=== PATIENT | male | born 1960 | race Caucasian/White ===

== ENCOUNTER 2023-12-13 10:04 | Inpatient (IN) | payer MEDICARE, OTHER ==
[~2023-12-13] VITALS: Ht 177.8 cm; Wt 63.5 kg
[2023-12-13 10:08] VITALS: O2SAT 97
[2023-12-13 10:35] LABS: MEAN CORPUSCULAR HEMOGLOBIN 29 PG (26.0-33.0); MEAN CORPUSCULAR HGB CONC 33 g/dl (31.0-36.0)
[2023-12-13 10:38] LABS: BASOPHILS # (AUTO) 0.2 K/uL (0.0-0.2); BASOPHILS % (AUTO) 1.9 % (0.0-2.0); EOSINOPHILS # (AUTO) 0.1 K/uL (0.0-0.7); EOSINOPHILS % (AUTO) 1.4 % (0.0-6.0); HEMATOCRIT 46 % (39-51); HEMOGLOBIN 15.2 g/dL (13.5-17.5); LYMPHOCYTES # (AUTO) 0.7 K/uL (0.8-4.8); LYMPHOCYTES % (AUTO) 7.3 % (20.0-44.0); MEAN CORPUSCULAR VOLUME 88 fL (80-96); MONOCYTES # (AUTO) 0.4 K/uL (0.1-1.30); MONOCYTES % (AUTO) 3.8 % (2.0-12.0); NEUTROPHILS # (AUTO) 8.8 K/uL (1.8-8.9); NEUTROPHILS % (AUTO) 85.6 % (43.0-81.0); PLATELET COUNT (AUTO) 417 K/uL (150-450); RED BLOOD CELL COUNT(AUTO) 5.23 MIL/uL (4.5-6.0); RED CELL DISTRIBUTION WIDTH 15.8 % (11.5-15.0); WHITE BLOOD COUNT (AUTO) 10.2 K/uL (4.3-11.0)
[2023-12-13 10:40] LABS: CALCIUM, SERUM 9.2 mg/dL (8.5-10.1); CARBON DIOXIDE 26 mmol/L (21-32); CHLORIDE 100 mmol/L (98-107); CREATININE 0.7 mg/dL (0.6-1.3); GLUCOSE 149 mg/dL (74-106); POTASSIUM 3.8 mmol/L (3.5-5.1); SODIUM SERUM 135 mmol/L (136-145); UREA NITROGEN, BLOOD 21 mg/dL (7-18)
[2023-12-13] MEDS: IV NS 0.9% 500 ML BAG IV ONE (10:40)
[2023-12-13 10:44] LABS: CHOLESTEROL 350 mg/dL (<200); HDL CHOLESTEROL 62 mg/dL (40-60); LDL 246 mg/dL (0-99); TRIGLYCERIDES 173 mg/dL (30-150)
[2023-12-13 10:44] LABS: INR 1.1 (0.91-1.10); PARTIAL THROMBOPLASTIN TIME 25.9 SEC (24.3-34.3); PROTHROMBIN TIME 11.6 SECS (9.2-11.1)
[2023-12-13 10:48] LABS: LACTIC ACID 1.5 mmol/L (0.4-2.0)
[2023-12-13 10:54] LABS: ALANINE AMINOTRANSFERASE 61 U/L (12-78); ALBUMIN 3.2 g/dL (3.4-5.0); ALKALINE PHOSPHATASE 102 U/L (46-116); ASPARTATE AMINOTRANSFERASE 18 U/L (15-37); BILIRUBIN,DIRECT 0.1 mg/dL (0.0-0.2); BILIRUBIN,TOTAL 0.6 mg/dL (0.2-1.0); TOTAL PROTEIN, SERUM 7.3 g/dL (6.4-8.2)
[2023-12-13] MEDS ORDERED: IV NS 0.9% 250 ML IV ONE (11:15)
[2023-12-13] MEDS ORDERED: IOHEXOL-350 100 ML VIAL IV ONE (11:15)
[2023-12-13] MEDS ORDERED: DEXA4TAB PO (12:30)
[2023-12-13] MEDS ORDERED: SENN-261 PO (12:30)
[2023-12-13] MEDS ORDERED: OMEP40CA21 PO (12:30)
[2023-12-13 13:07] LABS: APPEARANCE,URINE SLIGHTLY CLOUDY (CLEAR); BILIRUBIN,URINE NEGATIVE (NEGATIVE); BLOOD, URINE 1+ Ery/uL (NEGATIVE); COLOR,URINE YELLOW (YELLOW); KETONES,URINE NEGATIVE (NEGATIVE); LEUKOCYTE ESTERASE ,URINE 1+ (NEGATIVE); NITRITE, URINE NEGATIVE (NEGATIVE); PROTEIN,URINE NEGATIVE (NEGATIVE); UGLUCOSE NEGATIVE (NEGATIVE)
[2023-12-13 13:32] LABS: ADD URINE CULTURE YES; BACTERIA,URINE Many /HPF (None Seen); RBC,URINE 0-2 /HPF (0-2); SQUAMOUS EPITHELIAL CELL,UR Rare /HPF (None Seen)
[2023-12-13] MEDS ORDERED: ACETAMINOPHEN 325 MG TABLET PO PRN (14:00)
[2023-12-13] MEDS ORDERED: HYDROCODONE/APAP 5/325MG TABLET PO PRN (14:00)
[2023-12-13] MEDS ORDERED: ONDANSETRON HCL/PF 4 MG/2 ML VIAL IVP PRN (14:00)
[2023-12-13] MEDS ORDERED: MAGNESIUM HYDROXIDE 30 ML UDC PO PRN (14:00)
[2023-12-13] MEDS ORDERED: MAG HYDROX/AL HYDROX/SIMETH 30 ML UDC PO PRN (14:00)
[2023-12-13] MEDS ORDERED: Z GUARD REMEDY 4 OZ OINT TP PRN (14:00)
[2023-12-13] MEDS: IV NS 0.9% 1,000 ML IV PRN (14:44)
[2023-12-13] MEDS: CEFTRIAXONE 1 G in IV D5W 50 ML IV STA (14:51)
[2023-12-13] MEDS: ENOXAPARIN SODIUM 40 MG/0.4 ML DISP.SYRIN SQ SCH (14:58)
[2023-12-13 20:00] VITALS: BP 114/78; TEMP 98.1; O2SAT 98
[2023-12-13] MEDS: dexAMETHasone 1 MG TABLET ONE (22:59)
[2023-12-13] MEDS: dexAMETHasone 4 MG TABLET PO SCH (23:01)
[2023-12-14] VITALS: BP 110/90; TEMP 97.7; O2SAT 98
[2023-12-14 04:02] VITALS: BP 102/83; TEMP 97.5; O2SAT 99
[2023-12-14 06:55] LABS: BASOPHILS % (AUTO) 0.2 % (0.0-2.0); EOSINOPHILS % (AUTO) 0.6 % (0.0-6.0); HEMATOCRIT 39 % (39-51); HEMOGLOBIN 13.1 g/dL (13.5-17.5); LYMPHOCYTES # (AUTO) 0.5 K/uL (0.8-4.8); LYMPHOCYTES % (AUTO) 6.1 % (20.0-44.0); MEAN CORPUSCULAR HEMOGLOBIN 30 PG (26.0-33.0); MEAN CORPUSCULAR HGB CONC 34 g/dl (31.0-36.0); MEAN CORPUSCULAR VOLUME 88 fL (80-96); MONOCYTES # (AUTO) 0.3 K/uL (0.1-1.30); MONOCYTES % (AUTO) 3.7 % (2.0-12.0); NEUTROPHILS # (AUTO) 6.8 K/uL (1.8-8.9); NEUTROPHILS % (AUTO) 89.4 % (43.0-81.0); PLATELET COUNT (AUTO) 375 K/uL (150-450); RED BLOOD CELL COUNT(AUTO) 4.39 MIL/uL (4.5-6.0); RED CELL DISTRIBUTION WIDTH 16.1 % (11.5-15.0); WHITE BLOOD COUNT (AUTO) 7.6 K/uL (4.3-11.0)
[2023-12-14 07:29] LABS: CALCIUM, SERUM 8.7 mg/dL (8.5-10.1); CREATININE 0.7 mg/dL (0.6-1.3); MAGNESIUM 1.9 mg/dL (1.8-2.4); PHOSPHORUS 3.9 mg/dL (2.5-4.9); POTASSIUM 3.7 mmol/L (3.5-5.1)
[2023-12-14 07:53] LABS: THYROID STIMULATING HORMONE 0.948 uIU/mL (0.358-3.74)
[2023-12-14 08:30] VITALS: BP 121/84; TEMP 97.7; O2SAT 99
[2023-12-14] MEDS: PANTOPRAZOLE 40 MG TABLET.DR PO SCH (10:41)
[2023-12-14] MEDS: LEVETIRACETAM (250 MG) 250 MG TABLET PO SCH (13:26)
[2023-12-14] MEDS: CEFTRIAXONE 1 G in IV D5W 50 ML IV SCH (13:28)
[2023-12-14 13:33] VITALS: BP 111/77; TEMP 97.6; O2SAT 96
[2023-12-14 16:00] VITALS: BP 103/73; TEMP 97.6; O2SAT 100
== END 2023-12-14 22:05 | disposition home or self-care (01) | DRG 689 ==
LOC: ER 10:10 → TELE 12:55
DX: N39.0 Urinary tract infection, site not specified (principal); G93.41 Metabolic encephalopathy; C79.31 Secondary malignant neoplasm of brain; C34.90 Malignant neoplasm of unspecified part of unspecified bronchus or lung; Z85.841 Personal history of malignant neoplasm of brain; Z85.118 Personal history of other malignant neoplasm of bronchus and lung; Z98.2 Presence of cerebrospinal fluid drainage device; R56.9 Unspecified convulsions
CPT/HCPCS: 36415; 70450-TC; 70496-TC; 70498-TC; 71045-TC; 80048-TC; 80061-TC; 80076-TC; 81001; 82962-TC; 83605-TC; 83735-TC; 84100-TC; 84443-TC; 84484-TC; 85025-TC; 85730-TC; 86850-TC; 87040-TC; 87081-TC; 87086-TC; 95819-TC; 97110-TC; 97530-TC; A4223; A6403; G0378; J0696; J1650; J7030; J7040; J7050; J7060; J8540; Q9967